=== PATIENT | female | born 1980 | race Caucasian/White ===

== ENCOUNTER → 2016-11-04 | Outpatient (CLI) | payer OTHER ==
--- NOTE | 2016-11-04 12:00 | DI ---
SINUS SERIES, 11/04/2016 11:23 AM: Clinical History: Sinus pain. Previous Exam: None at this facility. 4 views are submitted. There is no abnormality of the ethmoid, maxillary, or sphenoid sinuses. 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 The petrous pyramids are also normal. Reading: Normal sinus series.
== END ==
LOC: MOB RAD 11:24
PROVIDERS: ATTEND Physician Assistant
DX: J34.89 Other specified disorders of nose and nasal sinuses (principal)
CPT/HCPCS: 70220

== ENCOUNTER → 2017-02-03 | Outpatient (CLI) | payer OTHER | LOC: MOB LAB 09:14 | PROVIDERS: ATTEND Student in an Organized Health Care Education/Training Program | DX: Z30.430 Encounter for insertion of intrauterine contraceptive device (principal) | CPT/HCPCS: 87491; 87591 ==